=== PATIENT | male | born 1955 | race Caucasian/White ===

== ENCOUNTER 2019-04-16 16:09 | Emergency (ER) | payer OTHER ==
[2019-04-16 16:53] LABS: #Lymphocytes 1.1 thou/uL (1.20-3.40); #Monocytes 0.7 thou/uL (0.11-0.59); #Neutrophils 9.5 thou/uL (1.40-6.50); %Basophils 0.3 % (0.0-1.0); %Eosinophils 0.3 % (0.0-10.0); %Lymphocytes 9.8 % (21.0-51.0); %Monocytes 6.2 % (0.0-10.0); %Neutrophils 83.4 % (42.0-75.0); Hemoglobin 16.5 g/dL (14.0-18.0); Mean Corpuscular HGB CONC 32.7 g/dL (32.0-36.0); Mean Corpuscular Hemoglobin 30.4 pg (27.0-31.0); Mean Platelet Volume 7.8 fL (7.4-10.4); Platelet Count 182 thou/uL (130-400); RBC Distribution Width 12.3 % (11.5-14.5); Red Blood Cell (RBC) Count 5.42 mill/uL (4.70-6.10); White Blood Cell (WBC) Count 11.3 thou/uL (4.8-10.8)
--- NOTE | 2019-04-16 16:53 | RAD ---
XR Chest 1 View Portable HISTORY: Syncope COMPARISON: None FINDINGS: The heart size is normal. The lungs are well expanded without focal areas of consolidation, pneumothorax or pleural effusions. There is a small nodular density in the right lower chest. This may either represent nipple shadow or a lung nodule. Recommend repeating the exam with nipple markers.
--- NOTE | 2019-04-16 17:07 | CT ---
CT HEAD WITHOUT IV CONTRAST COMPARISON: None. HISTORY: Syncopal episode. Patient woke up on concrete floor. Laceration above right eyebrow. TECHNIQUE: Axial CT imaging at 5 mm intervals from vertex through skull base without contrast FINDINGS: There is no evidence of an acute infarction, hemorrhage, mass effect, or midline shift. The ventricul ar system is normal in size, shape, and position. Visualized paranasal sinuses are clear. Osseous structures appear intact. No calvarial fracture is seen. There is subcutaneous soft tissue sw elling and suggested laceration in a right supraorbital location. IMPRESSION: 1. No acute intracranial abnormality demonstrated. 2. Right supraorbital scalp soft tissue swelling and laceration.
[2019-04-16 17:17] LABS: ALT (SGPT) 55 U/L (8-55); AST (SGOT) 38 U/L (5-34); Albumin 4.5 g/dL (3.4-4.8); Alkaline Phosphatase 46 U/L (40-150); Anion Gap 12 mmol/L (10-20); BUN (Urea Nitrogen) 24 mg/dL (8.4-25.7); Bilirubin, Total 0.6 mg/dL (0.2-1.2); Calc. Creatinine Clearance 0 mL/min (70-130); Calcium 10.1 mg/dL (7.8-10.44); Carbon Dioxide 24 mmol/L (23-31); Chloride 104 mmol/L (98-107); Estimated GFR-MDRD 42; Glucose 111 mg/dL (80-115); Potassium 4.4 mmol/L (3.5-5.1); Protein, Total 7.5 g/dL (5.8-8.1); Sodium 136 mmol/L (136-145)
[2019-04-16] MEDS ORDERED: Lidocaine 4% Cream 5 GM TUBE w/ Tegaderm ONE (18:00)
[2019-04-16] MEDS ORDERED: Lidocaine 2% MPF 10 ML AMP (For Epidural Use) ONE (18:10)
[2019-04-16] MEDS ORDERED: Adacel (T-DAP) 0.5 ML SYRINGE ONE (18:10)
[2019-04-16] MEDS ORDERED: Lidocaine 1% PF 5 ML VIAL ONE (18:20)
[2019-04-16] MEDS ORDERED: Bacitracin Zinc 1 Packet ONE (19:29)
--- NOTE | 2019-04-16 19:30 | CT ---
CT OF CERVICAL SPINE PERFORMED WITHOUT CONTRAST ENHANCEMENT: 04/16/19 HISTORY: Syncopal episode with fall and neck pain. The vertebral bodies are normal in height. There is marked degenerative changes. Mild disc narrowing at C3-4. More marked disc narrowing at C4-5, C5-6, and C6-7. There are also degenerative facet change s present. There is some very mild left sided foraminal narrowing at C3-4 and mild foraminal narrowing on the ri ght side at C4-5. No central canal stenosis. No CT evidence of fracture. Lung apices are clear. IMPRESSION: No CT evidence of fracture of the cervical spine. POS: [facility]
--- NOTE | 2019-04-16 20:30 | RAD ---
PORTABLE CHEST: 04/16/19 HISTORY: Syncope. COMPARISON: 04/16/19 exam. Heart size and mediastinum are within normal limits. Lungs are clear of any infiltrates. A nodular de nsity seen in the right base is difficult to perceive on this exam. I do not see any evidence of nip ple markers on this study. IMPRESSION: No active intrathoracic disease. The nodular density seen in the right base on the previous exam is d ifficult to definitively visualize on this study. No nipple markers are seen. POS: [facility]
--- NOTE | 2019-04-20 17:08 | EKG ---
Test Reason : SYNCOPE Blood Pressure : / mmHG Vent. Rate : 087 BPM Atrial Rate : 087 BPM P-R Int : 204 ms QRS Dur : 122 ms QT Int : 360 ms P-R-T Axes : 026 -14 006 degrees QTc Int : 433 ms Normal sinus rhythm Right bundle branch block Abnormal ECG No change from 05/14/2015 Confirmed by MO MCKOY DO ([id number]), story editor ARTURO MCGUIRE ([id number]) on 04/20/2019 5:07:49 PM Referred By: Confirmed By:MO MCKOY DO
== END 2019-04-16 19:16 | disposition home or self-care (01) ==
LOC: ERS 16:09
DX: R55 Syncope and collapse (principal); S01.81XA Laceration without foreign body of other part of head, initial encounter; I10 Essential (primary) hypertension; W01.198A Fall on same level from slipping, tripping and stumbling with subsequent striking against other object, initial encounter
CPT/HCPCS: 12052; 36415; 70450; 71045; 72125; 80053; 84484; 85025; 90471; 90715; 93005; J2001